=== PATIENT | female | born 1995 | race African-American/Black ===

== ENCOUNTER 2021-05-19 08:57 | Emergency (ER) | payer OTHER ==
[2021-05-19 09:07] VITALS: BP 144/105; PULSE 87; TEMP 98.7; BMI 25.8
[2021-05-19] MEDS ORDERED: ONDANSETRON 4 MG/2 ML VIAL IVPUSH ONE (10:37)
[2021-05-19] MEDS ORDERED: ACETAMINOPHEN 1000 MG/100 ML BAG IVPB ONE (10:37)
[2021-05-19] MEDS ORDERED: SODIUM CHLORIDE 1,000 ML IV STA (10:37)
[2021-05-19] MEDS ORDERED: ACETAMINOPHEN INJECTION 100 ML IVPB ONE (10:42)
[2021-05-19] MEDS ORDERED: ONDANSETRON 4 MG/2 ML VIAL ONE (10:42)
[2021-05-19 11:06] LABS: BASO % 0.6 % (0-2.0); HEMATOCRIT 40.4 % (32.4-45.2); HEMOGLOBIN 13.7 GM/dL (10.7-15.3); LYMPH % 24.5 % (8-40); MCH 29.3 pg (25.7-33.7); MEAN CELL VOLUME 86.2 fl (80-96); MEAN PLT VOLUME 8.9 fl (7.5-11.1); MONO % 18.2 % (3.8-10.2); NEUT % 56.7 % (42.8-82.8); PLATELET COUNT 139 10^3/uL (134-434); RBC 4.68 M/mm3 (3.60-5.2); RDW 13.2 % (11.6-15.6); WHITE BLOOD COUNT 3.7 K/mm3 (4.0-10.0)
[2021-05-19 11:12] LABS: INR 1.23 (0.83-1.09); PROTHROMBIN TIME (PATIENT) 13.8 SEC (9.7-13.0)
[2021-05-19 11:25] LABS: BLOOD UREA NITROGEN 9.4 mg/dL (7-18); CALCIUM 9.3 mg/dL (8.5-10.1)
[2021-05-19 11:26] LABS: ALBUMIN 3.8 g/dl (3.4-5.0)
[2021-05-19 11:28] LABS: CREATININE 0.8 mg/dL (0.55-1.3)
[2021-05-19 11:30] LABS: BILIRUBIN,TOTAL 0.4 mg/dL (0.2-1); TOT PROT 7.8 g/dl (6.4-8.2)
[2021-05-19 12:34] LABS: EPI CELLS >36 /uL (0-25.1); HYALINE CASTS 2 /uL (0-3.1); PH,URINE 6.5 (5.0-8.0); URINE APPEARANCE CLOUDY; URINE BACTERIA 1393 /uL (0-1359); URINE BILIRUBIN NEGATIVE (NEGATIVE); URINE COLOR YELLOW; URINE GLUCOSE (UA) NEGATIVE (NEGATIVE); URINE KETONE 1+ (NEGATIVE); URINE LEUK ESTERASE TRACE (NEGATIVE); URINE NITRITE NEGATIVE (NEGATIVE); URINE PROTEIN NEGATIVE (NEGATIVE); URINE RBC 3 /uL (0-23.9); URINE UROBILINOGEN 0.2 mg/dL (0.2-1.0); URINE WBC 52 /uL (0-25.8)
[2021-05-20 14:12] LABS: SARS-CoV-2 NAA Detected (Not Detected)
== END 2021-05-19 14:29 | disposition home or self-care (01) ==
LOC: JER 08:57
PROC: 3E0337Z Introduction of Electrolytic and Water Balance Substance into Peripheral Vein, Percutaneous Approach (ICD-10-PCS; principal; 2021-05-19)
PROC: 3E033GC Introduction of Other Therapeutic Substance into Peripheral Vein, Percutaneous Approach (ICD-10-PCS; 2021-05-19)
PROC: 3E0337Z Introduction of Electrolytic and Water Balance Substance into Peripheral Vein, Percutaneous Approach (ICD-10-PCS; 2021-05-19)
DX: R11.2 Nausea with vomiting, unspecified (principal)
CPT/HCPCS: 36415; 80053; 81003; 83690; 84703; 85025; 85610; 87086; 99284-25; C9803-CS; U0003; U0005

== ENCOUNTER 2022-03-21 21:45 | Emergency (ER) | payer OTHER ==
[2022-03-21 21:53] VITALS: BP 132/76; BMI 24.3
[2022-03-21] MEDS ORDERED: DEXAMETHASONE SOD PHOSPHATE 10 MG/1 ML VIAL IVPUSH ONE (23:35)
[2022-03-21] MEDS ORDERED: SODIUM CHLORIDE 0.9% 500 ML INFUS.BAG IV ONE (23:35)
[2022-03-22] MEDS ORDERED: FAMOTIDINE 20 MG/50 ML IVPB 20 MG/50 ML MG IVPB ONE ×2 (00:01→00:14)
[2022-03-22 00:14] LABS: HEMATOCRIT 38.3 % (32.4-45.2); MCH 29.2 pg (25.7-33.7); MEAN CELL VOLUME 85.8 fl (80-96); MEAN PLT VOLUME 8.3 fl (7.5-11.1); PLATELET COUNT 163 10^3/uL (134-434); RBC 4.46 M/mm3 (3.60-5.2); RDW 12.7 % (11.6-15.6)
[2022-03-22] MEDS ORDERED: ACETAMINOPHEN 325 MG TABLET (FP) PO ONE (00:22)
[2022-03-22 00:36] LABS: CALCIUM 9.2 mg/dL (8.5-10.1)
[2022-03-22 00:37] LABS: ALBUMIN 4.3 g/dl (3.4-5.0); BLOOD UREA NITROGEN 8.5 mg/dL (7-18)
[2022-03-22 00:40] LABS: CREATININE 0.8 mg/dL (0.55-1.3)
[2022-03-22] MEDS ORDERED: ACETAMINOPHEN 325 MG TABLET (FP) ONE (00:40)
[2022-03-22 00:41] LABS: BILIRUBIN,TOTAL 1.2 mg/dL (0.2-1)
[2022-03-22 02:01] VITALS: PULSE 95; RESP 17; TEMP 99.1
[2022-03-22 04:13] LABS: ANISOCYTOSIS 3+; MACROCYTOSIS 0; ROULEAU 1+
== END 2022-03-22 02:02 | disposition home or self-care (01) ==
LOC: JERFT 21:45 → JER 21:45
PROC: 3E033GC Introduction of Other Therapeutic Substance into Peripheral Vein, Percutaneous Approach (ICD-10-PCS; principal; 2022-03-21)
DX: U07.1 COVID-19 (principal); R50.9 Fever, unspecified
CPT/HCPCS: 0241U-QW; 36415; 80053; 85025; 96374; 99284-25